=== PATIENT | female | born 1940 | race Caucasian/White ===

== ENCOUNTER 2018-11-16 17:45 | Emergency (ER) | payer MEDICARE ==
[~2018-11-16 17:45] MED LIST: Iopamidol 370 76% 100 ML VIAL ONE
[2018-11-16 19:17] LABS: Bilirubin Negative (Negative); Blood, Urine Large (Negative); Clarity Cloudy (Clear); Glucose, Urine (Dipstick) Negative (Negative); Leukocyte Negative (Negative); Nitrite Negative (Negative); Protein, Urine (Dipstick) 100 mg/dL (Neg-Trace); Urobilinogen 0.2 mg/dL (0.2-1.0)
[2018-11-16 19:30] LABS: RBC/HPF GREATER THAN 50-TNTC HPF (0-3)
[2018-11-16 19:31] LABS: Bacteria/HPF None Seen HPF (None Seen); Squamous Epithelial 0-3 HPF (0-3); WBC/HPF 0-3 HPF (0-3)
[2018-11-16 20:03] LABS: #Basophils 0.1 thou/uL (0.0-0.2); #Eosinphils 0.2 thou/uL (0.0-0.7); #Lymphocytes 3.4 thou/uL (1.20-3.40); #Monocytes 0.7 thou/uL (0.11-0.59); #Neutrophils 5.7 thou/uL (1.40-6.50); %Basophils 1.3 % (0.0-1.0); %Eosinophils 1.7 % (0.0-10.0); %Lymphocytes 33.7 % (21.0-51.0); %Monocytes 6.9 % (0.0-10.0); %Neutrophils 56.5 % (42.0-75.0); Hemoglobin 12.7 g/dL (12.0-16.0); Mean Corpuscular HGB CONC 32.5 g/dL (32.0-36.0); Mean Corpuscular Hemoglobin 29.6 pg (27.0-31.0); Platelet Count 237 thou/uL (130-400); RBC Distribution Width 12.7 % (11.5-14.5); Red Blood Cell (RBC) Count 4.31 mill/uL (4.20-5.40); White Blood Cell (WBC) Count 10.1 thou/uL (4.8-10.8)
[2018-11-16 20:17] LABS: ALT (SGPT) 12 U/L (8-55); AST (SGOT) 12 U/L (5-34); Albumin 4.2 g/dL (3.4-4.8); Alkaline Phosphatase 129 U/L (40-150); Anion Gap 16 mmol/L (10-20); BUN (Urea Nitrogen) 23 mg/dL (9.8-20.1); Bilirubin, Total 0.4 mg/dL (0.2-1.2); Calc. Creatinine Clearance 0 mL/min (70-130); Carbon Dioxide 25 mmol/L (23-31); Chloride 103 mmol/L (98-107); Estimated GFR-MDRD 60; Globulin 3.3 g/dL (2.4-3.5); Glucose 122 mg/dL (83-110); Potassium 4.7 mmol/L (3.5-5.1); Protein, Total 7.5 g/dL (6.0-8.3); Sodium 139 mmol/L (136-145)
[2018-11-16 20:18] LABS: INR-International Normal Ratio 1.5; PTT 36.8 SEC (22.9-36.1)
--- NOTE | 2018-11-16 21:51 | CT ---
CT ABDOMEN WITH AND WITHOUT CONTRAST CT PELVIS WITH AND WITHOUT CONTRAST (CT urogram) 11/16/18 at 9:02 p.m. HISTORY: 78-year-old female with urinary tract infection, urinary frequency and hematuria. COMPARISON: None. TECHNIQUE: Precontrast scan, nephrographic/venous phase scan, and excretory/pyelographic phase scan, performed t hrough the entire abdomen and pelvis. Coronal and sagittal reconstructions of the pyelographic phase scan. FINDINGS: There is a left adrenal nodule measuring approximately 2 x 3 x 2.5 cm, with precontrast density of 17 HU (not a definite adrenal adenoma). Contralateral right adrenal gland measures approximately 1.5 x 1.5 cm with density of 8 HU, consisten t with adrenal adenoma. Lung bases are grossly clear. No pleural effusion. No ascites or pneumoperito neum. Urinary bladder is decompressed. On the excretory phase scan, IV contrast material partially fills the still decompressed urinary blad jones. No obvious large intraluminal bladder mass is identified, but the evaluation is incomplete. There are two calculi abutting each other at a right renal lower pole calyx, each one approximately 0 .6 x 0.3 cm. There are multiple tiny calculi in left renal mid and lower pole calyces. The smaller ones are 0.2 an d 0.3 cm in size. The largest is at a lower pole calyx and is up to 0.7 cm. There is no hydronephrosi s bilaterally. There is a tiny focal subcentimeter hypodensity at the posterior parenchyma of the le ft renal lower pole, too small to definitively characterize. There is no evidence of pyelonephritis. No other renal parenchymal lesions are identified. No hydroureter. Normal appendix. Atherosclerotic c alcification of abdominal aorta without aneurysm. Atherosclerotic calcification of origins of bilater al renal and superior mesenteric arteries. High density material in the proximal body and neck of non distended gallbladder probably representing multiple tiny calcified gallstones. Normal liver, pancrea s, and spleen. No colonic diverticulitis. No small bowel dilation. IMPRESSION: 1. Bilateral nephrolithiasis (calculus of kidney), left more than right. 2. Tiny focal subcentimeter hypodensity in the left renal parenchyma, too small to definitively characterize. 3. Urinary bladder is incompletely distended and incompletely evaluated. 4. Left adrenal nodule that cannot be classified as a definite adrenal adenoma. Further evaluati on with MRI of the abdomen, adrenal protocol, with and without contrast, should be considered. 5. Cholelithiasis without signs of acute cholecystitis. POS: [facility]
== END 2018-11-16 22:05 | disposition home or self-care (01) ==
LOC: NAV ERS 17:45
DX: N20.0 Calculus of kidney (principal); E11.9 Type 2 diabetes mellitus without complications; I10 Essential (primary) hypertension; I48.91 Unspecified atrial fibrillation; M10.9 Gout, unspecified; E78.00 Pure hypercholesterolemia, unspecified; Z79.01 Long term (current) use of anticoagulants; Z79.899 Other long term (current) drug therapy
CPT/HCPCS: 36415; 74178; 80053; 81003; 81015; 85025; 85610; 85730; 93005; Q9967